=== PATIENT | female | born 1970 | race Caucasian/White ===

== ENCOUNTER 2021-08-20 13:11 | Emergency (ER) | payer OTHER ==
[~2021-08-20] VITALS: Ht 162.6 cm; Wt 59.0 kg
--- NOTE | 2021-08-20 14:00 | NUR ---
BIBS C/A "Rashes x3days all over- I think Im allergic to lamictal". AMBULATORY, AAOX4, NO SOB.
--- NOTE | 2021-08-20 14:15 | NUR ---
AT BED SIDE
[2021-08-20] MEDS ORDERED: PRED50TA PO (14:40)
[2021-08-20] MEDS ORDERED: EPINEPHRINE (1:1000) 1 MG/ML AMPUL ONE (14:49)
--- NOTE | 2021-08-20 14:55 | NUR ---
Patient discharged to home in stable condition. Written and verbal after care instructions given. Patient verbalizes understanding of instruction.
[2021-08-20] MEDS ORDERED: EPINEPHRINE (1:1000) MDV 30 MG/30ML VIAL SUBCUT ONE (15:00)
[2021-08-20 15:09] VITALS: BP 115/76
== END 2021-08-20 15:00 | disposition home or self-care (01) ==
LOC: ER 13:16
DX: L25.8 Unspecified contact dermatitis due to other agents (principal); T42.6X5A Adverse effect of other antiepileptic and sedative-hypnotic drugs, initial encounter; F32.A Depression, unspecified; F41.9 Anxiety disorder, unspecified; Z88.0 Allergy status to penicillin; Z88.8 Allergy status to other drugs, medicaments and biological substances; Y92.89 Other specified places as the place of occurrence of the external cause
CPT/HCPCS: 96372; 99283; J0171